=== PATIENT | male | born 1995 | race Caucasian/White ===

== ENCOUNTER 2020-03-26 03:42 | Emergency (ER) | payer SELFPAY ==
[2020-03-26] VITALS (7 sets, daily range): BP systolic 92–139; BP diastolic 45–72; PULSE 92–117; RESP 14–19; TEMP 36.8; O2SAT 91–100
--- NOTE | 2020-03-26 03:55 | ED.ALCOHOL ---
HPI - Alcohol General Chief Complaint: Alcohol <Golden Heck MD - Last Filed: 04/02/20 02:00> Stated Complaint: combative <Golden Heck MD - Last Filed: 04/02/20 02:00> Time Seen by Provider: 03/26/20 03:45 <Golden Heck MD - Last Filed: 04/02/20 02:00> History of Present Illness HPI narrative: Brought in by EMS with police. He was reportedly drinking earlier in the evening then got combative with family. The police arrived and he was fighting with them. He was given 5 mg IM haldol and has been cooperative since then. History limited by intoxication <Golden Heck MD - Last Filed: 04/02/20 02:00> Related Data Home Medications: Home Medications Medication Instructions Recorded Confirmed No Home Medications 03/26/20 03/26/20 <Golden Heck MD - Last Filed: 04/02/20 02:00> Allergies/Adverse Reactions: Allergies Allergy/AdvReac Type Severity Reaction Status Date / Time No Known Allergies Allergy Mild Verified 03/26/20 03:45 <Golden Heck MD - Last Filed: 04/02/20 02:00> Review of Systems Review of Systems: ROS unobtainable: Yes other (intoxication) <Golden Heck MD - Last Filed: 04/02/20 02:00> Exam Const: General: no acute distress and alert <Golden Heck MD - Last Filed: 04/02/20 02:00> HENMT: Head: normal to inspection <Golden Heck MD - Last Filed: 04/02/20 02:00> Eyes: Pupils: Equal, round and reactive pupils present <Golden Heck MD - Last Filed: 04/02/20 02:00> Resp: Effort & Inspection: normal respiratory effort <Golden Heck MD - Last Filed: 04/02/20 02:00> Auscultation: clear to auscultation bilaterally <Golden Heck MD - Last Filed: 04/02/20 02:00> Cardio: Rate: tachycardic <Golden Heck MD - Last Filed: 04/02/20 02:00> Rhythm: regular rhythm <Golden Heck MD - Last Filed: 04/02/20 02:00> GI: GI Palp: Yes Soft to palpation and No Tenderness to palpation present (GI) <Golden Heck MD - Last Filed: 04/02/20 02:00> Skin: General skin exam: normal color <Golden Heck MD - Last Filed: 04/02/20 02:00> Neuro: General: moves all extremities <Golden Heck MD - Last Filed: 04/02/20 02:00> Speech: Abnormal speech present slurred <Golden Heck MD - Last Filed: 04/02/20 02:00> Course Course Emergency Course: Patient awake and ambulatory. Clinically sober. Has called his mother for a ride home. <Denis Agee MD - Last Filed: 03/26/20 09:48> Vital Signs Vital signs: Vital Signs Temperature 36.8 C 03/26/20 03:42 Pulse Rate 113 H 03/26/20 03:42 Respiratory Rate 16 03/26/20 03:42 Blood Pressure 93/72 L 03/26/20 03:42 Pulse Oximetry 91 03/26/20 03:42 Temperature 36.8 C 03/26/20 03:42 Pulse Rate 100 03/26/20 10:34 Respiratory Rate 15 03/26/20 10:34 Blood Pressure 139/62 03/26/20 10:34 Pulse Oximetry 100 03/26/20 10:34 <Golden Hekc MD - Last Filed: 04/02/20 02:00> Vital Signs Temperature 36.8 C 03/26/20 03:42 Pulse Rate 113 H 03/26/20 03:42 Respiratory Rate 16 03/26/20 03:42 Blood Pressure 93/72 L 03/26/20 03:42 Pulse Oximetry 91 03/26/20 03:42 Temperature 36.8 C 03/26/20 03:42 Pulse Rate 100 03/26/20 10:34 Respiratory Rate 15 03/26/20 10:34 Blood Pressure 139/62 03/26/20 10:34 Pulse Oximetry 100 03/26/20 10:34 <Denis Agee MD - Last Filed: 03/26/20 09:48> Discharge Plan Discharge Clinical Impression: Alcohol intoxication <Golden Heck MD - Last Filed: 04/02/20 02:00> Patient Disposition: Home, Self-Care <Golden Heck MD - Last Filed: 04/02/20 02:00> Condition: Stable <Golden Heck MD - Last Filed: 04/02/20 02:00> Instructions: Abuse of Alcohol (ED) <Golden Heck MD - Last Filed: 04/02/20 02:00> Additional Instructions: Return to the ER if y
--- NOTE | 2020-03-26 05:14 | PC.NURSE ---
pt continues to sleep on stretcher at this time. VS stable, RR even and unlabored, pt in NAD. will continue to monitor pt for baseline status changes.
--- NOTE | 2020-03-26 07:07 | PC.NURSE ---
Assumed care of pt, pt is resting on stretcher - equal chest rise and fall, lights dimmed, VSS. Breakfast tray ordered for pt.
--- NOTE | 2020-03-26 07:29 | PC.NURSE ---
Breakfast tray ordered for pt.
== END 2020-03-26 10:36 | disposition home or self-care (01) ==
PROVIDERS: Emergency Provider Emergency Medicine
DX: F10.129 Alcohol abuse with intoxication, unspecified (principal)
CPT/HCPCS: 99281